=== PATIENT | female | born 1960 | race Caucasian/White ===

== ENCOUNTER 2016-10-30 12:34 | Emergency (ER) | payer MEDICARE, MEDICAID ==
--- NOTE | 2016-10-30 15:52 | RAD ---
CLAVICLE LEFT HISTORY: Fall 2 days ago with clavicle pain. COMPARISONS: None. FINDINGS: 2 views of the left clavicle were performed demonstrating intact osseous structures with no discrete clavicular fracture visualized. The AC joint is not widened. The glenohumeral alignment is appropriate. Included portions of the left lung field are within expected. IMPRESSION: 1. Negative views of the left clavicle with no discrete fracture visualized.
[2016-10-30] MEDS ORDERED: PREDNISONE 20 MG TABLET ONE (15:57)
[2016-10-30] MEDS ORDERED: HYDROCODONE/ACETAMINOPHEN 5/325MG TABLET ONE (16:04)
== END 2016-10-30 16:32 | disposition home or self-care (01) ==
LOC: ED 12:34
DX: S46.912A Strain of unspecified muscle, fascia and tendon at shoulder and upper arm level, left arm, initial encounter (principal); L23.9 Allergic contact dermatitis, unspecified cause; W19.XXXA Unspecified fall, initial encounter; Y92.9 Unspecified place or not applicable

== ENCOUNTER 2016-11-16 15:37 | Emergency (ER) | payer MEDICARE, MEDICAID ==
[2016-11-16] MEDS ORDERED: ONDANSETRON 4 MG ODT TAB ONE (16:51)
--- NOTE | 2016-11-17 08:15 | US ---
DUPLX SCAN VEIN EXT UNI LT History: Left thigh pain. Comparison: 10/24/2016. Findings: Ultrasonography of the left lower extremity was performed, with grayscale color and Doppler technique utilizing evaluation of the lower extremity. There is adequate compressibility of the deep venous system without current findings of deep venous thrombosis. Normal responses are seen to augmentation and Valsalva maneuvers. Normal respiratory variation is observed as well. Thrombus within the peroneal veins on prior examination is not observed on the current exam. Impression: 1. A left lower extremity ultrasound which currently appears negative, with no current findings of deep venous thrombosis observed. The previously noted peritoneal thrombus on prior examinations is not observed on the current exam. The findings were called to the emergency room at 1832 hours, 11/16/2016, by [facility] radiology.
== END 2016-11-16 19:04 | disposition home or self-care (01) ==
LOC: ED 15:37
DX: M79.652 Pain in left thigh (principal)
CPT/HCPCS: 99283 ×2; 93971; A9270

== ENCOUNTER 2016-11-26 16:22 | Emergency (ER) | payer MEDICARE, MEDICAID ==
[2016-11-26] MEDS ORDERED: ONDANSETRON 4 MG ODT TAB ONE (18:30)
[2016-11-26 19:15] LABS: CSF APPEARANCE CLEAR; CSF COLOR COLORLESS; CSF RBC < 10 k/uL; CSF WBC < 10.0 /uL (<10)
[2016-11-26 19:20] LABS: GLUCOSE,CSF 67 mg/dL (70% OF SERUM)
[2016-11-26] MEDS ORDERED: MORPHINE SULFATE 4 MG/ML SYRINGE ONE (19:45)
== END 2016-11-26 19:53 | disposition home or self-care (01) ==
LOC: ED 16:22
DX: M54.2 Cervicalgia (principal); Z86.718 Personal history of other venous thrombosis and embolism; Z79.899 Other long term (current) drug therapy; Z88.6 Allergy status to analgesic agent; Z88.8 Allergy status to other drugs, medicaments and biological substances; Z87.891 Personal history of nicotine dependence
CPT/HCPCS: 89051; 87070; 82945; 84157; 99283 ×2; 62270 ×2; 96372; J2270; A9270

== ENCOUNTER 2016-12-19 13:15 | Emergency (ER) | payer MEDICARE, MEDICAID | END 2016-12-19 14:18 | disposition home or self-care (01) | LOC: ED 13:15 | DX: E89.0 Postprocedural hypothyroidism (principal); E36.8 Other intraoperative complications of endocrine system; Y83.8 Other surgical procedures as the cause of abnormal reaction of the patient, or of later complication, without mention of misadventure at the time of the procedure ==

== ENCOUNTER 2017-01-16 07:13 | Day surgery (SDC) | payer MEDICARE, MEDICAID ==
[~2017-01-16 07:13] MED LIST: FENTANYL 250 MCG/5 ML AMP IV PRN; LACTATED RINGERS 1,000 ML IV SCH; LIDOCAINE Viscous 2% 15 ML UDCUP PO PRN; MIDAZOLAM HCL 5 MG/5 ML VIAL IV PRN
[2017-01-16] MEDS ORDERED: IV START KIT ONE (07:37)
[2017-01-16] MEDS ORDERED: LACTATED RINGERS 1,000 ML ONE (07:37)
[2017-01-16] MEDS ORDERED: LIDOCAINE Viscous 2% 15 ML UDCUP ONE (08:20)
[2017-01-16] MEDS ORDERED: FENTANYL 250 MCG/5 ML AMP ONE (08:20)
[2017-01-16] MEDS ORDERED: MIDAZOLAM HCL 5 MG/5 ML VIAL ONE (08:20)
[2017-01-16 13:23] LABS: HELICOBACTER PYLORII DETECTION NEGATIVE (NEGATIVE)
--- NOTE | 2017-01-18 10:57 | SURGPATH ---
[facility] [address] [place] [id number] Patient Name: JONO ROCK MR#: [id number] : 1960 Gender: F Specimen #: [id number] Collected: 01/16/2017 Received: 01/17/2017 Reported: 01/18/2017 Submitting Phys: ERMA PORTER Copy To Phys: [facility] Clinical History / Pre-Operative Diagnosis: EPIGASTRIC PAIN WITH HEARTBURN; NAUSEA AND VOMITING; RULE OUT GIARDIA, CELIAC SPRUE AND GASTRITIS Specimen Source / Surgical Procedure Performed: #1-DUODENAL BIOPSY; #2-ANTRAL BIOPSY Interpretation: DUODENUM, BIOPSY: - NO PATHOLOGIC ABNORMALITY 2. ANTRUM, BIOPSY: - NO PATHOLOGIC ABNORMALITY Electronically Signed Out Harrison Chandra M.D. Gross Description: #1 The specimen is received in a formalin filled container labeled with the patient's name and "duodenal biopsy". Two arguello-mayfield biopsies are 0.3 and 0.4 cm. Totally embedded in cassette #1. #2 The specimen is received in a formalin filled container labeled with the patient's name and "antral biopsy". Two mayfield biopsies are 0.3 and 0.4 cm. Totally embedded in cassette #2. Janny Zhu. Microscopic Description: Microscopic performed. 1: [id number] 2: 78999 R10.13
== END 2017-01-16 10:15 | disposition home or self-care (01) ==
LOC: SDC 07:13
PROVIDERS: ATTEND Internal Medicine Gastroenterology
PROC: 0DB98ZX Excision of Duodenum, Via Natural or Artificial Opening Endoscopic, Diagnostic (ICD-10-PCS; principal; 2017-01-16)
PROC: 0DB68ZX Excision of Stomach, Via Natural or Artificial Opening Endoscopic, Diagnostic (ICD-10-PCS; 2017-01-16)
DX: K29.70 Gastritis, unspecified, without bleeding (principal); K29.80 Duodenitis without bleeding; Z87.891 Personal history of nicotine dependence; F32.9 Major depressive disorder, single episode, unspecified; F41.9 Anxiety disorder, unspecified; Z86.718 Personal history of other venous thrombosis and embolism; Z79.01 Long term (current) use of anticoagulants; M19.90 Unspecified osteoarthritis, unspecified site; Z88.8 Allergy status to other drugs, medicaments and biological substances; Z88.5 Allergy status to narcotic agent; Z88.6 Allergy status to analgesic agent
CPT/HCPCS: 87081; 43239; J3010; J2250; A9270; J7120

== ENCOUNTER 2017-01-23 18:21 | Emergency (ER) | payer MEDICARE, MEDICAID ==
[2017-01-23] MEDS ORDERED: IOPAMIDOL 370 (76%) IV.SOLN 150 ML IV ONE (18:22)
[2017-01-23] MEDS ORDERED: SUCRALFATE 1 G/10 ML DOSE ONE (19:03)
[2017-01-23] MEDS ORDERED: MAALOX/LIDO2%VISC/SIMETHICONE 40 ML BOT ONE (19:03)
[2017-01-23 19:25] LABS: ABSOLUTE NEUTROPHIL COUNT 3.2 K/mm3 (1.8-7.7); BASO # 0.1 K/mm3 (0.0-0.2); BASO % 0.9 % (0.2-1.0); EOS # 0.1 (0.0-0.5); EOS % 1.9 % (0.9-2.9); HEMOGLOBIN 13.2 gm/l (12.0-16.0); IMM NEUT% 0.1 % (0-1); LYMPH # 3.2 (1.0-4.8); MEAN CELL VOLUME 90.9 fl (81.0-99.0); MEAN CORPUSCULAR HEMOGLOBIN 30.8 pg (27.0-31.0); MEAN CORPUSCULAR HGB CONC 33.8 g/dl (33.0-37.0); MEAN PLATELET VOLUME 9.3 fl (7.4-10.4); MONO # 0.5 (0.0-0.8); MONO % 7.3 % (4-12); NEUT % 44.8 % (43-75); PLATELET COUNT 238 K/mm3 (130-400)
[2017-01-23] MEDS ORDERED: DICYCLOMINE HCL 10 MG/ML 2ML AMP IM ONE (19:30)
[2017-01-23 19:40] LABS: ALB/GLOB RATIO 1.3 (>1.0); ALBUMIN 4.1 gm/dL (3.5-5.7); CALCIUM 9.1 mg/dL (8.6-10.3)
[2017-01-23] MEDS ORDERED: SODIUM CHLORIDE 0.9% 1,000 ML ONE (20:18)
--- NOTE | 2017-01-23 20:59 | CT ---
Name: JONO ROCK Exam: CTA chest, abdomen and pelvis with contrast Comparison: None History: Burning epigastric pain Procedure: Helical CT using multidetector technique was applied to the abdomen and pelvis during intravenous administration of 150 cc Isovue-370. No oral contrast was given per ordering physician. Multiimage planar reconstructions were obtained. An automated dose reduction technique was used to minimize patient radiation dose. Findings: CTA chest (contrast-enhanced): Heart is nonenlarged. There is no pericardial effusion. Aorta is mildly atherosclerotic and normal caliber. There is no aneurysm or dissection. There is normal 3 great vessel arrangement. Injection is made via the right. Right thyroid lobe is difficult to see. Subchondral cystic changes noted within the right humeral head. There is no suspicious axillary, mediastinal or hilar adenopathy. Large airways are clear. Emphysema is present. Basilar atelectasis is noted. There is no pleural effusion or pneumothorax. Mild multilevel degenerative disease of the spine is present. CTA abdomen (contrast enhanced): Liver, gallbladder, pancreas, adrenal glands, kidneys, IVC and portal vein are within normal limits. There is a granuloma within a normal-sized spleen. Aorta is mildly atherosclerotic and normal caliber. There is no dilation or dissection. Origins of the celiac artery superior mesenteric artery renal artery and inferior mesenteric arteries are intact. The stomach is thick walled and nearly empty. Small bowel and colon are within normal limits. There is a small fat filled umbilical hernia. There is grade 1 retrolisthesis of L5 on S1 with degenerative disc space narrowing. CTA pelvis (contrast enhanced): Bladder is normal size. Within the bladder, there are couple air bubbles. If there is been no recent instrumentation, consideration be given to infection with a gas-forming organism.. Uterus is normal. Adnexa are symmetric. There is mild sigmoid colon diverticulosis. Appendix is not identified. Small bowel is normal caliber. Vascular calcifications are present. Common iliac external iliac and common femoral arteries are normal caliber. Impression: 1. Mild diffuse atherosclerosis of normal caliber aorta. There is no aneurysmal dilation or dissection 2. Emphysema. There is mild bilateral atelectasis 3. Prior granulomatous infection 4. Nonvisualization the appendix 5. Mild distal colonic diverticulosis without current evidence for diverticulitis. Note: The above report was uploaded to [facility]'s electronic medical records system at 2055 hours.
== END 2017-01-23 22:03 | disposition home or self-care (01) ==
LOC: ED 18:21
DX: R10.84 Generalized abdominal pain (principal); R10.13 Epigastric pain
CPT/HCPCS: 83605; 83690; 85025; 80053; 74174; 71275; 99284; 96372; 36415; 99283; A9270 ×2; J7030; Q9967

== ENCOUNTER 2017-03-02 15:12 | Emergency (ER) | payer MEDICARE, MEDICAID ==
--- NOTE | 2017-03-02 16:32 | RAD ---
WRIST- LEFT 3 VIEWS COMPARISON: Left wrist 3 views, 08/17/2016 HISTORY: Left wrist pain for 4 days. No injury. FINDINGS: Views: Left wrist PA, oblique, and lateral. Bones: No acute finding. Healed fracture deformity of the distal radius and nonunited fracture of the styloid process of the ulna. Again demonstrated is a piece of wire stuck in the distal radius. Carpal bone alignment: Normal. Joint spacing: Moderate narrowing of the radiocarpal joint. Soft tissues: Calcification of the triangular fibrocartilage. IMPRESSION: 1. No acute finding or radiographic change since 08/25/2016. 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 2. Calcium pyrophosphate dihydrate deposition in the triangular fibrocartilage.
== END 2017-03-02 16:41 | disposition home or self-care (01) ==
LOC: ED 15:12
DX: M25.532 Pain in left wrist (principal); Z79.01 Long term (current) use of anticoagulants